=== PATIENT | male | born 1935 | race Caucasian/White ===

== ENCOUNTER 2017-05-29 11:00 | Inpatient (IN) ==
[2017-05-29 14:03] LABS: Basophils # (Auto) 0 K/mcL (0.0-0.3); Basophils % (Auto) 0.3 % (0.0-2.0); Eosinophils # (Auto) 0.1 K/mcL (0.0-0.7); Eosinophils % (Auto) 1.7 % (0.0-7.0); Lymphocytes # (Auto) 0.7 K/mcL (1.5-4.8); Lymphocytes % (Auto) 17.5 % (15.5-49.0); Mean Cell Volume 102.9 fL (80.0-100.0); Mean Corpuscular HGB Conc 34.2 g/dL (31.0-36.0); Mean Corpuscular Hemoglobin 35.2 pg (26.0-34.0); Monocytes # (Auto) 0.4 K/mcL (0.1-0.9); Monocytes % (Auto) 9.5 % (1.0-12.0); Platelet Count 208 K/mcL (140-440); RBC 4.06 M/mcL (4.50-5.90); Red Cell Distribution Width 13.6 % (11.5-14.5)
[2017-05-29 14:15] LABS: Blood Urea Nitrogen 22 mg/dl (8-23)
[2017-05-29 17:28] LABS: Appearance,Urine CLEAR; Bilirubin,Urine NEG (NEG); Color,Urine YELLOW; Glucose,Urine (UA) NEGATIVE (NEG); Leukocyte Esterase,Urine NEG /uL (NEG); Nitrate,Urine NEG (NEG); Protein,Urine NEG (NEG); Specific Gravity,Urine 1.021 (1.000-1.035); Urine Blood NEG mg/dL (<0.03); Urobilinogen,Urine NEG (NEG)
[2017-06-06] MEDS ORDERED: ceFAZolin 1 GM VIAL IV SCH (05:00)
[2017-06-06] MEDS ORDERED: LIDOCAINE HCL/PF 100 MG/5 ML SYRINGE IV ONE (10:30)
[2017-06-06] MEDS ORDERED: ATROPINE SULFATE 0.4 MG/ML VIAL IV ONE (10:30)
[2017-06-06] MEDS ORDERED: PHENYLEPHRINE 10 MG/ML VIAL IV ONE (10:30)
[2017-06-06] MEDS ORDERED: fentaNYL 100 MCG/2 ML VIAL IV ONE (10:30)
[2017-06-06] MEDS ORDERED: ONDANSETRON 4 MG/2 ML VIAL IV ONE (10:30)
[2017-06-06] MEDS ORDERED: PROPOFOL 200 MG/20 ML VIAL IV ONE (10:30)
[2017-06-06] MEDS ORDERED: GLYCOPYRROLATE 0.2 MG/ML VIAL IV ONE (10:30)
[2017-06-06] MEDS ORDERED: KETAMINE 100 MG/ML ML IV ONE (10:30)
[2017-06-06] MEDS ORDERED: MIDAZOLAM 2 MG/2 ML VIAL IV ONE (10:30)
[2017-06-06] MEDS ORDERED: ePHEDrine 50 MG/ML AMPUL IV ONE (10:30)
[2017-06-06] MEDS ORDERED: GENTAMICIN SULFATE 800 MG/20 ML VIAL IR ONE (11:06)
[2017-06-06] MEDS ORDERED: ePHEDrine 50 MG/ML AMPUL IV PRN (12:54)
[2017-06-06] MEDS ORDERED: METHOCARBAMOL 1,000 MG/10 ML VIAL IV PRN ×2 (12:54→21:13)
[2017-06-06] MEDS ORDERED: IPRATROPIUM/ALBUTEROL 3 ML AMPUL.NEB NEB PRN (12:54)
[2017-06-06] MEDS ORDERED: diphenhydrAMINE 50 MG/ML VIAL IV PRN (12:54)
[2017-06-06] MEDS ORDERED: MEPERIDINE 25 MG/ML SYRINGE IV PRN (12:54)
[2017-06-06] MEDS ORDERED: BENZOCAINE/MENTHOL 1 LOZENGE PO PRN ×2 (12:54→13:20)
[2017-06-06] MEDS ORDERED: MAGNESIUM HYDROXIDE 30 ML ORAL.SUSP PO PRN (13:20)
[2017-06-06] MEDS ORDERED: ONDANSETRON 4 MG/2 ML VIAL IV PRN ×2 (13:20)
[2017-06-06] MEDS ORDERED: POLYETHYLENE GLYCOL 3350 17 GM PACKET PO PRN (13:20)
[2017-06-06] MEDS ORDERED: BISACODYL 10 MG SUPP.RECT PR PRN (13:20)
[2017-06-06] MEDS ORDERED: TRANEXAMIC ACID 1,000 MG/10 ML VIAL IV ONE (13:20)
[2017-06-06] MEDS ORDERED: FLEETS ADULT ENEMA PR PRN (13:20)
[2017-06-06] MEDS ORDERED: HYDROCODONE/APAP 7.5/325MG TABLET PO PRN (13:25)
--- NOTE | 2017-06-06 13:29 | Brief Operative Note ---
Date of procedure: 06/06/17 Pre-op diagnosis: ankle arthritis,achilles contracture Post-op diagnosis: same Procedure: TAR; avchilles lengthening; prophylactic internal fixation med mall Grafts/Implants: Yes (Infinity TAR) Anesthesia: GETA Complications: none Surgeon: Jason Esposito Collision Worker: Jigar Jacob Tourniquet Time (Minutes): 115 Specimens Removed/Pathology: none sent Condition: stable Disposition: floor
[2017-06-06] MEDS ORDERED: LACTATED RINGERS 1,000 ML IV SCH (13:30)
[2017-06-06] MEDS ORDERED: BUPIVACAINE 0.5% 50 ML VIAL IJ ONE (13:38)
[2017-06-06] MEDS: fentaNYL 100 MCG/2 ML VIAL IV PRN ×6 (14:00→14:43)
--- NOTE | 2017-06-06 14:18 | Operative Note ---
DATE OF OPERATION: 06/06/2017 PREOPERATIVE DIAGNOSES: 1. 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 2. Contracture of the right Achilles tendon. POSTOPERATIVE DIAGNOSES: 1. 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 2. Contracture of the right Achilles tendon. OPERATION: 1. Tendo-Achilles lengthening. 2. Right total ankle replacement. SURGEON: Jason Esposito MD. HEARING AID REPAIR TECHNICIAN: Jigar Jacob PA-C. ANESTHESIA: General done by Dr. Naik. TOURNIQUET TIME: 1 hour 55 minutes. ESTIMATED BLOOD LOSS: 100 mL. SUMMARY OF PROCEDURE: General anesthesia was attained. The right leg was prepped and draped. A thigh-level tourniquet was put up. The first thing that was done was the Z-lengthening of the Achilles tendon. A posteromedial incision was made 4 to 6 inches in length. It was taken down to the medial aspect of the Achilles tendon. A Z-lengthening was outlined and then performed with a 10 mm blade, keeping the posterior aspect of the tendon intact. We released the Achilles tendon throughout the Z-lengthening. Tensioning was done after the ankle replacement. Attention was then turned anteriorly. Incision was made just lateral to the tibialis anterior. It was taken down to the extensor retinaculum which was split longitudinally. The tibialis anterior was identified and mobilized medially. The anterior aspect of the ankle joint was approached. An incision was made in the soft tissue just under the tibialis anterior. Medial and lateral flaps were developed and the bone was exposed. Subperiosteal dissection was done of the very distal aspect of the tibia and dorsal aspect of the talus. The tibial cutting guide was placed on the tibia. It was aligned under mini C-arm and then pinned. The tibial guide was then exchanged for the saw cutting guide. The corner holes were made. The dorsal, medial and lateral cuts were then made as well. The anterior half of the distal tibia was removed using a threaded pin. Attention was then turned to the talus. The cutting guide was placed on the talus. The talar cut was made. Both components were then sized and they sized to a 4. The prongs were then made in the distal tibia using the guide system. The talus was next addressed. The guide was used for the posterior cut and the cut was made. The anterior and posterior bevels were then accomplished in two steps using a reamer. The prongs were then placed using the guide system into the anterior aspect of the talus. The best combination of a full range of motion and stability was with a 6 mm trial. The gutters were debrided on the medial and lateral aspect. All the cut bone was removed. The joint was thoroughly irrigated. A 4 long implant was then placed into the tibia. A size 4 talus was placed and then finally a 6 mm polyethylene insert was implanted. The tensioning was then done in the lengthened Achilles tendon. This was done with three mattress sutures of #2 FiberWire. Of note, prior to implantation a prophylactics screw was placed into the medial malleolus. This was done using a cannulated technique and a small stab incision. This was followed by pinning and drilling. A 70 mm 5.5 partially-threaded screw was placed. The tourniquet was let down. The wound was copiously irrigated. The retinaculum was closed with interrupted 2-0 Monocryl. The subcutaneous tissue was closed with interrupted 2-0 Monocryl. The skin was closed with mattress sutures of 2-0 nylon. Posteriorly, the wound was irrigated. The epitenon was closed with interrupted 2-0 Monocryl. The subcutaneous tissue was closed with interrupted 2-0 Monocryl. The skin was closed with mattress sutures of 2-0 nylon. The areas of surgery were infiltrated with a total of 35 mL of Marcaine for postoperative analgesia. A sterile compressive dressing was applied followed by a Cedeno boot. The sponge and needle count was correct. The patient tolerated the procedures well and was taken to the recovery room in stable condition. YOANNA:heather Job ID: [id number] Doc ID: [id number] Jason Esposito MD
[2017-06-06] MEDS: HYDROmorphone 2 MG/ML SYRINGE IV PRN ×4 (14:20→14:35)
--- NOTE | 2017-06-06 14:40 | XRay Report ---
CLINICAL INFORMATION: Postoperative follow-up TECHNIQUE: AP, oblique, lateral right ankle COMPARISON: None. FINDINGS: Osseous detail scattered by overlying cast. There is a cancellous screw within the medial malleolus. Status post right tibiotalar arthroplasty. Prosthetic complements are in anatomic positions. IMPRESSION: Postsurgical right ankle as above Interpreted and Authenticated by: Hal Chung 06/06/17
[2017-06-06] MEDS: DEXTROSE 5%-1/2NS W/20MEQ KCL 1,000 ML IV SCH (15:15)
[2017-06-06] MEDS: 0.9 % SODIUM CHLORIDE 10 ML SYRINGE IV SCH (15:16)
--- NOTE | 2017-06-06 17:51 | Orthopedic Progress Note ---
Subjective Patient information: Note initiated : 06/06/17 at 5:48 pm Service Date, if different from initiated Date: [] Patient: Alen Pavon 81 y/o M admitted on 06/06/17 for Right Total Ankle Replacement. Chief Complaint: [] Principal diagnosis: DJD right ankle Interval history: TAR today Objective Vital signs: Vital Signs Temp Pulse Resp BP Pulse Ox 06/06/17 17:06 97.1 F 58 L 16 134/65 95 06/06/17 16:06 97.0 F 60 16 153/76 93 06/06/17 15:52 97.1 F 58 L 18 152/82 99 06/06/17 15:27 97.1 F 62 18 163/83 98 06/06/17 15:15 97.2 F 55 L 18 144/83 100 06/06/17 14:50 97.6 F 64 14 118/69 99 06/06/17 14:35 61 13 116/71 100 06/06/17 14:20 60 12 133/83 99 06/06/17 14:05 66 15 107/70 99 06/06/17 13:58 97.6 F 64 15 129/88 100 06/06/17 06:15 96.9 F L 61 16 155/80 97 Intake and Output 06/06/17 06/06/17 06/06/17 05:59 13:59 21:59 Intake Total 1999 Output Total 1125 / 1125 Balance 875 / 875 Intake: IV 1999 Output: Urine Catheter Amount 1000 / 1000 Estimated Blood Loss 125 / 125 Other: Weight 172 lb Patient Weight 06/07/17 05:59 Weight 172 lb Intake & Output: Intake & Output 06/06/17 06/06/17 06/06/17 05:59 13:59 21:59 Intake Total 1999 Output Total 1125 / 1125 Balance 875 / 875 Weight 172 lb Intake: IV 1999 Output: Urine Catheter Amount 1000 / 1000 Estimated Blood Loss 125 / 125 Dressing: Yes clean, Yes dry, Yes intact, Yes splint in place Neurological exam IM: Yes motor sensory deficit, Yes oriented X3 - Diagnostic Results Ankle x-ray: image reviewed (Well positioned TAR, no complications) - Labs CBC & BMP: 05/29/17 12:03 05/29/17 12:03 Labs: 05/29/17 12:03 Hgb 14.3 Hct 41.7 Assessment and Plan (1) History of total replacement of right ankle No complications ASA for dvt prophylaxis(hx bleeding with regular ASA OOB tochair; PT in am Status: Acute
[2017-06-06] MEDS: ceFAZolin 1 GM VIAL IV SCH (17:54)
[2017-06-06] MEDS: SENNOSIDES 1 TABLET PO SCH ×2 (18:43→21:38)
[2017-06-06] MEDS: DOCUSATE SODIUM 100 MG CAPSULE PO SCH ×2 (18:44→21:38)
[2017-06-06] MEDS ORDERED: METHOCARBAMOL 750 MG TABLET PO PRN (21:12)
[2017-06-07] MEDS: 0.9 % SODIUM CHLORIDE 10 ML SYRINGE IV SCH ×4 (00:05→21:10)
[2017-06-07] MEDS: HYDROcodone/APAP 10/325MG TABLET PO PRN ×4 (01:28→18:54)
[2017-06-07] MEDS: DEXTROSE 5%-1/2NS W/20MEQ KCL 1,000 ML IV SCH ×2 (01:32→11:07)
[2017-06-07] MEDS: ceFAZolin 1 GM VIAL IV SCH ×3 (02:35→17:44)
--- NOTE | 2017-06-07 06:54 | Orthopedic Progress Note ---
Subjective Patient information: Note initiated : 06/07/17 at 6:51 am Service Date, if different from initiated Date: [] Patient: Alen Pavon 81 y/o M admitted on 06/06/17 for Right Total Ankle Replacement. Chief Complaint: [] Principal diagnosis: DJD right ankle Interval history: Patient has some pain in the ankle but is otherwise doing okay. Rest well last night after pain medicine. Denies any CP, SOB, ROMAN, or any other acute symptoms. Objective Vital signs: Vital Signs Temp Pulse Resp BP Pulse Ox 06/07/17 04:00 97.8 F 61 16 125/68 97 06/06/17 23:53 98.0 F 69 18 96/56 95 06/06/17 21:52 95 06/06/17 21:50 88 L 06/06/17 21:40 93 06/06/17 19:51 97.7 F 59 L 16 129/83 93 06/06/17 17:12 96.9 F L 66 16 146/77 99 06/06/17 17:06 97.1 F 58 L 16 134/65 95 06/06/17 16:06 97.0 F 60 16 153/76 93 06/06/17 15:52 97.1 F 58 L 18 152/82 99 06/06/17 15:27 97.1 F 62 18 163/83 98 06/06/17 15:15 97.2 F 55 L 18 144/83 100 06/06/17 14:50 97.6 F 64 14 118/69 99 06/06/17 14:35 61 13 116/71 100 06/06/17 14:20 60 12 133/83 99 06/06/17 14:05 66 15 107/70 99 06/06/17 13:58 97.6 F 64 15 129/88 100 Intake and Output 06/06/17 06/07/17 06/07/17 21:59 05:59 13:59 Intake Total 2240 / 2240 1920 / 1920 Output Total 1125 / 1125 1000 / 1000 Balance 1115 / 1115 920 / 920 Intake: IV 1999 / 1999 1000 / 1000 Dextrose 5%-1/2Ns W/20Meq 1000 / 1000 KCl 1,000 ml @ 100 mls/ hr IV CONT GAYATRI Rx#: [id number] Oral 240 / 240 920 / 920 Output: Urine Catheter Amount 1000 / 1000 1000 / 1000 Estimated Blood Loss 125 / 125 Other: Meal Dinner Percent of Meal Consumed 75% Feeding Ability Assist with Tray Set Up Weight 187 lb Intake & Output: Intake & Output 06/06/17 06/07/17 06/07/17 21:59 05:59 13:59 Intake Total 2240 / 2240 1920 / 1920 Output Total 1125 / 1125 1000 / 1000 Balance 1115 / 1115 920 / 920 Weight 187 lb Intake: IV 1999 / 1999 1000 / 1000 Dextrose 5%-1/2Ns W/20Meq 1000 / 1000 KCl 1,000 ml @ 100 mls/ hr IV CONT GAYATRI Rx#: [id number] Oral 240 / 240 920 / 920 Output: Urine Catheter Amount 1000 / 1000 1000 / 1000 Estimated Blood Loss 125 / 125 Other: Meal Dinner Percent of Meal Consumed 75% Feeding Ability Assist with Tray Set Up Incision clean and dry: Yes Dressing: Yes clean, Yes dry, Yes intact, Yes splint in place Neurological exam IM: Yes neurovascular intact Extremities exam IM: No calf tenderness, Yes Foot pink and warm, Yes neurovascular intact - Labs CBC & BMP: 06/07/17 04:30 05/29/17 12:03 Labs: Orthopedic Labs 06/07/17 04:30 PT Pending INR Pending 06/07/17 05/29/17 04:30 12:03 Hgb 11.7 L 14.3 Hct 34.5 L 41.7 Assessment and Plan (1) History of total replacement of right ankle Plan to keep patient one more day for PT and pain control Kary singh once patient able to ambulate to bathroom Follow up in 7 days for cast change Status: Acute
[2017-06-07] MEDS: DOCUSATE SODIUM 100 MG CAPSULE PO SCH ×2 (09:00→21:10)
[2017-06-07] MEDS: ASPIRIN 81 MG TAB.CHEW PO SCH (09:00)
[2017-06-07] MEDS: VITAMIN D3 1,000 UNIT TABLET PO SCH (09:00)
[2017-06-07] MEDS: SENNOSIDES 1 TABLET PO SCH (21:10)
[2017-06-08] MEDS: HYDROcodone/APAP 10/325MG TABLET PO PRN ×3 (01:18→15:42)
[2017-06-08] MEDS: 0.9 % SODIUM CHLORIDE 10 ML SYRINGE IV SCH ×2 (05:37→13:20)
[2017-06-08] MEDS: DOCUSATE SODIUM 100 MG CAPSULE PO SCH (08:19)
[2017-06-08] MEDS: VITAMIN D3 1,000 UNIT TABLET PO SCH (08:19)
[2017-06-08] MEDS: ASPIRIN 81 MG TAB.CHEW PO SCH (08:19)
== END 2017-06-08 16:30 | disposition home or self-care (01) | DRG 470 ==
LOC: MEDSUR 06-06 06:15
PROVIDERS: ADMIT Orthopaedic Surgery Foot and Ankle Surgery; ATTEND Orthopaedic Surgery Foot and Ankle Surgery

== ENCOUNTER 2018-03-20 14:20 | Observation (INO) ==
[2018-03-20 15:19] LABS: Basophils # (Auto) 0 K/mcL (0.0-0.3); Basophils % (Auto) 0.6 % (0.0-2.0); Eosinophils # (Auto) 0.1 K/mcL (0.0-0.7); Eosinophils % (Auto) 2.5 % (0.0-7.0); Granulocytes % (Auto) 77.8 % (38.0-78.0); Lymphocytes # (Auto) 0.5 K/mcL (1.5-4.8); Lymphocytes % (Auto) 10.6 % (15.5-49.0); Mean Cell Volume 100.5 fL (80.0-100.0); Mean Corpuscular HGB Conc 34.7 g/dL (31.0-36.0); Mean Corpuscular Hemoglobin 34.9 pg (26.0-34.0); Monocytes # (Auto) 0.4 K/mcL (0.1-0.9); Monocytes % (Auto) 8.5 % (1.0-12.0); Platelet Count 236 K/mcL (140-440); RBC 4.03 M/mcL (4.50-5.90); Red Cell Distribution Width 13.5 % (11.5-14.5)
[2018-03-20 15:33] LABS: ALT/SGPT 14 U/l (0-40); Albumin 3.8 gm/dL (3.2-5.2); Alkaline Phosphatase 73 U/L (39-117); Blood Urea Nitrogen 19 mg/dl (8-23); C-Reactive Protein 0.5 mg/dl (0.0-0.8)
--- NOTE | 2018-03-20 15:33 | Emergency Department Note ---
Wound/Laceration HPI - General Chief Complaint: Wound/Laceration Stated Complaint: wound to right achilles Time Seen by Provider: 03/20/18 14:25 Source: patient Mode of arrival: ambulatory Limitations: no limitations - History of Present Illness HPI Narrative: Nonhealing wound to the right posterior calf. Seen in wound care, concern for erythema and induration around the wound as far as possible deep-seated cellulitis. Question workup for the ED including MR and labs. Patient with postsurgical poor wound healing, identified circulation issues with stent placement but persistent small vessel disease. Minimal pain no fevers no constitutional symptoms. Very active, has not been elevating the leg or dressing the wound quite as advised. - Related Data Home Medications Medication Instructions Recorded Confirmed Clopidogrel Bisulfate [Plavix] 1 tablet PO DAILY 08/14/17 03/20/18 Allergies Allergy/AdvReac Type Severity Reaction Status Date / Time Sulfa (Sulfonamide Allergy Mild Rash Verified 05/29/17 11:41 Antibiotics) barium sulfate AdvReac Mild Shakiness Verified 05/29/17 11:46 pentazocine [From Talwin] AdvReac Mild Hallucinati Verified 05/29/17 11:40 ng Anvsmjw-Qax-Mnz Reductase AdvReac Mild Joint Pain Verified 05/29/17 11:42 Inhibitor Review of Systems All systems ED: reviewed and negative except as stated. Past Medical History - Past Medical History Attestation: Yes: The following information was validated with the patient. Medical history: Reports: COPD, peripheral artery disease Surgical history ED: Reports: other (right ankle) Family history: Reports: non-contributory - Social History smoking status: Former smoker Physical Exam Limitations: no limitations General appearance: alert, in no apparent distress Head: atraumatic Eye: Present: normal appearance ENT: normal exam, mucous membranes moist Neck: Present: normal inspection. Absent: lymphadenopathy Chest: Present: normal inspection Respiratory: Absent: respiratory distress Cardiovascular: Present: regular rate, normal rhythm, systolic murmur. Absent: rubs, gallop, clicks Abdominal: Present: soft. Absent: tenderness Extremities: Present: other (ulcerative wound dorsal aspect of right calf with surrounding hyperemia and erythema, minimally tender and no warmth appreciated. Thready pulses of the foot, so Refill) Course Vital Signs Temperature 98.2 F 03/20/18 14:21 Pulse Rate 71 03/20/18 14:21 Respiratory Rate 16 03/20/18 14:21 Blood Pressure 125/66 03/20/18 14:21 Pulse Oximetry (%) 97 03/20/18 14:21 Temperature 98.2 F 03/20/18 14:21 Pulse Rate 64 03/20/18 17:17 Respiratory Rate 16 03/20/18 14:21 Blood Pressure 137/78 03/20/18 17:17 Pulse Oximetry (%) 94 03/20/18 17:17 Wound/Laceration - Lab Data Lab results reviewed: Yes I reviewed the patient's lab results. Result diagrams: 03/20/18 14:53 03/20/18 14:53 Lab Results 03/20/18 03/20/18 Range/Units 14:53 14:53 WBC 4.3 L (4.5-11.0) K/mcL RBC 4.03 L (4.50-5.90) M/mcL Hgb 14.1 (13.5-16.5) g/dL Hct 40.5 L (41.0-55.0) % MCV 100.5 H (80.0-100.0) fL MCH 34.9 H (26.0-34.0) pg MCHC 34.7 (31.0-36.0) g/dL RDW 13.5 (11.5-14.5) % Plt Count 236 (140-440) K/mcL MPV 7.9 (7.4-10.4) fL Gran % 77.8 (38.0-78.0) % Lymph % (Auto) 10.6 L (15.5-49.0) % Monona % (Auto) 8.5 (1.0-12.0) % Eos % (Auto) 2.5 (0.0-7.0) % Baso % (Auto) 0.6 (0.0-2.0) % Gran # 3.3 (1.8-8.0) K/mcL Lymph # (Auto) 0.5 L (1.5-4.8) K/mcL Monona # (Auto) 0.4 (0.1-0.9) K/mcL Eos # (Auto) 0.1 (0.0-0.7) K/mcL Baso # (Auto) 0 (0.0-0.3) K/mcL ESR 46 H (0-15) mm/hr Sodium 139 (133-145) mmol/L Potassium 4.5 (3.3-5.1) mmol/L Chloride 103 (96-108) mmol/L Carbon Dioxide 26 (22-30) mmol/L Anion Gap 10.0 (8-16) BUN 19 (8-23) mg/dl Creatinine 1.1 (0.7-1.2) mg/dl GFR Calculation 63 Glucose 91 (70-105) mg/dL Calcium 9.3 (8.6-10.4) mg/dl Total Bilirubin 0.7 (0.0-1.0) mg/dL AST 21 (0-37) U/l ALT 14 (0-40) U/l Alkaline Phosphatase 73 (39-117) U/L C-Reactive Protein 0.5 (0.0-0.8) mg/dl Total Protein 7.7 (5.9-8.4) gm/dL Albumin 3.8 (3.2-5.2) gm/dL Globulin 3.9 H (2.2-3.7) gm/dL Albumin/Globulin Ratio 1.0 (1.0-2.3) - Radiology Data Radiology results reviewed: Yes I reviewed the patient's radiology results. MR with deep tissue cellulitis Disposition Pt seen by GREENHOUSE WORKER/PA only: No Clinical Impression: Leg ulcer, Cellulitis Summary: admit to hospitalist, Desponde to consult Disposition: Xfer As Inpt ([facility]) Condition: Good Referrals: Kath Bain MD [Primary Care Provider] -
[2018-03-20 16:12] LABS: Erythrocyte Sedimentation Rate 46 mm/hr (0-15)
--- NOTE | 2018-03-20 18:47 | Magnetic Resonance Report ---
CLINICAL INFORMATION: Total ankle prosthesis placed less than one year prior 2016. Excisional debridement of postsurgical wound posterior periarticular region. COMPARISON: Plain films from 06/06/2017. TECHNIQUE: Axial T1 T1 post Magnevist T2 proton density coronal proton density STIR sagittal T2 proton density and T1 images were acquired FINDINGS: Total ankle prostheses has created marked magnetic susceptibility artifact which obscures the adjacent talus, the distal tibial plafond and fibula. Most of the hindfoot and the distal tibia remains visualized and there is no evidence of osteomyelitis. Visualized joint spaces and hindfoot are normal in width and alignment without arthritic change. No abscess identified There is patchy increased signal within the periarticular muscle and fascial planes in the ankle and hindfoot IMPRESSION: Cellulitis and scattered myositis in the periarticular muscle and fascial planes in the ankle and hindfoot. There is no evidence of osteomyelitis; however, marked susceptibility artifact from total ankle prostheses and medial malleolar screw obscures much of the local marrow signal. Interpreted and Authenticated by: Hal Leblanc 03/20/18
[2018-03-20] MEDS ORDERED: cefTRIAXone 1 GM VIAL IV ONE ×2 (19:09→21:00)
[2018-03-20] MEDS ORDERED: VANCOMYCIN 1,000 MG in 0.9 % SODIUM CHLORIDE 250 ML IV ONE (19:09)
[2018-03-20] MEDS ORDERED: ACETAMINOPHEN 1,000 MG/100 ML BOTTLE IV PRN (20:43)
[2018-03-20] MEDS ORDERED: ACETAMINOPHEN 325 MG TABLET PO PRN (20:43)
[2018-03-20] MEDS ORDERED: ONDANSETRON 4 MG/2 ML VIAL IV PRN (20:43)
[2018-03-20] MEDS ORDERED: traZODone HCL 50 MG TABLET PO PRN (20:43)
[2018-03-20] MEDS ORDERED: MAGNESIUM SULFATE 2 GM/50 ML BAG IV PRN (20:43)
[2018-03-20] MEDS ORDERED: POTASSIUM CHLORIDE 20 MEQ PACKET PO PRN (20:43)
[2018-03-20] MEDS ORDERED: VANCOMYCIN PER PHARMACY IV ONE (20:43)
[2018-03-20] MEDS ORDERED: cefTRIAXone 2 GM in DEXTROSE 5% IN WATER 50 ML IV SCH (20:45)
[2018-03-20] MEDS ORDERED: VANCOMYCIN 500 MG in 0.9 % SODIUM CHLORIDE 100 ML IV ONE (21:00)
[2018-03-20] MEDS: HEPARIN 5,000 UNIT/ML VIAL SQ SCH (21:32)
[2018-03-20] MEDS: DOCUSATE SODIUM 100 MG CAPSULE PO SCH (21:32)
[2018-03-20] MEDS: SENNOSIDES/DOCUSATE SODIUM 1 TAB TABLET PO SCH (21:38)
--- NOTE | 2018-03-20 22:22 | Internal Med History&Physical ---
Medical - H&P: [facility] Patient information: Note initiated : 03/20/18 at 10:17 pm Service Date, if different from initiated Date: [] Patient: Alen Pavon 82 y/o M admitted on 03/20/18 for wound to right achilles. Chief Complaint: [] Chief complaint: rt ankle infection History of present illness: Mr. Pavon is a 82 year old M was evaluated in the ER with right redness swelling and nonhealing wound right ankle previous surgical site after he was referred by wound care physician Dr. Francois. History patient's symptoms aggravated after he has been vigorously working outdoors riding [employer] lawn and recent visit to [place]. He subsequently developed pain and worsening redness and swelling on the prior right ankle surgical site. Initial workup with MRI and right lower extremity revealed myositis cellulitis without osteomyelitis. Patient was started on antibiotics and hospitalist service was consulted for admission as per wound care service recommendations. At the time of evaluation patient is alert oriented. Denies fever chills. He denies headache photophobia. Endorses to increasing redness swelling but denies any pain. He has had vascular insufficiency for which he had stent placement and currently on Plavix. Review of systems 10 point review systems was performed and is negative except as discussed above Medical - H&P: PMH Medical history: Peripheral vascular disease History of COPD Smoking status: Former smoker Alcohol use: occasionally Medical - H&P: Meds Home Medications Medication Instructions Recorded Confirmed Type Clopidogrel Bisulfate [Plavix] 1 tablet PO DAILY 08/14/17 03/20/18 History Vancomycin HCl in Dextrose 5 % 1.5 gm IV Q12 #24 plast..bag 03/22/18 Rx [Vancomycin 1.5 Gram/500 ml-D5w] cefTRIAXone [Rocephin] 2 gm IM Q24H #12 vial 03/22/18 Rx Allergies Allergy/AdvReac Type Severity Reaction Status Date / Time Sulfa (Sulfonamide Allergy Mild Rash Verified 05/29/17 11:41 Antibiotics) barium sulfate AdvReac Severe Shakiness Verified 03/20/18 20:19 pentazocine [From Min] AdvReac Mild Hallucinati Verified 05/29/17 11:40 ng Gfduxiz-Afy-Nrp Reductase AdvReac Mild Joint Pain Verified 05/29/17 11:42 Inhibitor Medical - H&P: Exam - Constitutional Vitals: Temp Pulse Resp BP Pulse Ox 97.5 F 58 L 16 166/82 95 03/20/18 20:11 03/20/18 21:19 03/20/18 21:19 03/20/18 20:11 03/20/18 21:19 General appearance: no acute distress Exam: Alert oriented Nonlabored breathing Pupils symmetric Oral cavity dry No ear or nose discharge Head normocephalic Neck no lymphadenopathy S1 and S2 regular ESM grade 1 diminished breath sounds bases abdomen soft Lower extremity right lateral and posterior leg/ankle redness/induration/ ulceration Skin no suspicious lesion Psych alert cooperative Neuro nonfocal Medical - H&P: Reslt - Labs CBC & Chem 7: 03/22/18 03:55 03/22/18 03:55 Labs: Short CBC 03/20/18 Range/Units 14:53 WBC 4.3 L (4.5-11.0) K/mcL Hgb 14.1 (13.5-16.5) g/dL Hct 40.5 L (41.0-55.0) % Plt Count 236 (140-440) K/mcL BMP 03/20/18 14:53 Sodium 139 Potassium 4.5 Chloride 103 Carbon Dioxide 26 BUN 19 Creatinine 1.1 Glucose 91 Calcium 9.3 Liver Function 03/20/18 Range/Units 14:53 Total Bilirubin 0.7 (0.0-1.0) mg/dL AST 21 (0-37) U/l ALT 14 (0-40) U/l Alkaline Phosphatase 73 (39-117) U/L Albumin 3.8 (3.2-5.2) gm/dL Medical - H&P: A/P (1) Cellulitis of right ankle Problem details: Responding to IV antibiotics and local wound care Current visit: Yes Status: Acute * Right ankle cellulitis-MRI no evidence of osteomyelitis. Wound care consulted. Continue antibiotics for gram-negative/MRSA coverage. * Peripheral vascular disease continue Plavix * Pain management on as needed opioids * Full code * prophylaxis heparin Plan * Broad antibiotic coverage/cultures * Wound care consult * Observation Admit
[2018-03-20] MEDS: 0.9 % SODIUM CHLORIDE 10 ML SYRINGE IV SCH (22:44)
[2018-03-21 05:40] LABS: Mean Cell Volume 102.1 fL (80.0-100.0); Mean Corpuscular Hemoglobin 34.7 pg (26.0-34.0); Platelet Count 203 K/mcL (140-440); RBC 3.64 M/mcL (4.50-5.90); Red Cell Distribution Width 13.5 % (11.5-14.5)
[2018-03-21 05:48] LABS: ALT/SGPT 11 U/l (0-40); Albumin 3.4 gm/dL (3.2-5.2); Albumin/Globulin Ratio 1.2 (1.0-2.3); Alkaline Phosphatase 61 U/L (39-117); Bilirubin,Direct < 0.2 mg/dL (0.0-0.3); Blood Urea Nitrogen 17 mg/dl (8-23); Gamma Glutamyl Transpeptidase 11 U/L (8-61); Uric Acid 6.4 mg/dL (2.5-8.0)
[2018-03-21] MEDS: 0.9 % SODIUM CHLORIDE 10 ML SYRINGE IV SCH ×5 (05:50→20:05)
[2018-03-21 07:44] LABS: Band Neutrophils % 1 % (0-10); Basophils % (Manual) 1 % (0-2); Eosinophils % (Manual) 3 % (0-7); Lymphocytes % 12 % (15-49); Macrocytosis 1+ (NONE SEEN); Monocytes % (Manual) 9 % (1-12); Platelet Estimate NORMAL (NORMAL); RBC Morphology ABNORM (NORMAL); Segmented Neutrophils % 73 % (38-78)
[2018-03-21] MEDS: CLOPIDOGREL 75 MG TABLET PO SCH (08:01)
[2018-03-21] MEDS: MULTIVIT,THER IRON,CA,FA & MIN 1 TABLET PO SCH (08:01)
[2018-03-21] MEDS: HEPARIN 5,000 UNIT/ML VIAL SQ SCH ×2 (08:02→21:05)
[2018-03-21] MEDS: DOCUSATE SODIUM 100 MG CAPSULE PO SCH ×2 (08:02→20:05)
[2018-03-21] MEDS ORDERED: VANCOMYCIN PER PHARMACY IV SCH (08:15)
[2018-03-21] MEDS: VANCOMYCIN 1,500 MG in 0.9 % SODIUM CHLORIDE 500 ML IV SCH ×2 (09:49→21:19)
--- NOTE | 2018-03-21 10:06 | General Surgery Consult Note ---
History of Present Illness Patient information: Note initiated : 03/21/18 at 10:01 am Service Date, if different from initiated Date: [] Patient: Alen Pavon 82 y/o M admitted on 03/20/18 for wound to right achilles. Chief Complaint: [] Consult date: 03/21/18 Requesting physician: Mike Noe (Wound care) History of present illness: Patient admitted via ER yesterday. 82/M Established wound care patient. S/P Right ankle replacement with delayed wound healing posterior ankle surgery site wound. PAD S/P Angiography and Stent placement. Patient was seen in clinic and sent to ER for CSSSI at the site of posterior ankle surgery wound and lower half of leg with acute inflammatory changes ( PAIN, SWELLING, REDNESS, WARMTH and throbbing pain. ) H/O OVER exertion walking ,driving, riding tractor and attending to [employer] for 2 -3 days prior. He was started on IV Vancomycin and Rocephin empirically and underwent a MRI scan.. This revealed soft tissue inflammatory changes, myositis but NO deep abscesses at site of wound. NO osteomyelitis. Medications and Allergies Home Medications Medication Instructions Recorded Confirmed Type Clopidogrel Bisulfate [Plavix] 1 tablet PO DAILY 08/14/17 03/20/18 History Allergies Allergy/AdvReac Type Severity Reaction Status Date / Time Sulfa (Sulfonamide Allergy Mild Rash Verified 05/29/17 11:41 Antibiotics) barium sulfate AdvReac Severe Shakiness Verified 03/20/18 20:19 pentazocine [From [facility]] AdvReac Mild Hallucinati Verified 05/29/17 11:40 ng Taysktv-Toe-Wry Reductase AdvReac Mild Joint Pain Verified 05/29/17 11:42 Inhibitor Exam Temp Pulse Resp BP Pulse Ox 98.3 F 55 L 18 173/83 97 03/21/18 07:04 03/21/18 03:58 03/21/18 07:04 03/21/18 07:04 03/21/18 07:36 - General physical appearance well developed, well nourished, no distress - Eyes PERRL, normal ocular movement - ENT normal pinna, normal nares, normal mucosa, no congestion - Head Head exam IM: Present: atraumatic, normal inspection, normocephalic - Neck no masses, no bruits, trachea midline, no venous distension - Cardiovascular Cardiovascular exam IM: Present: normal rate and rhythm, systolic murmur - Respiratory normal expansion, clear to auscultation dullness: bilateral (lung bases) - Abdomen Abdomen: Present: soft, non tender, bowel sounds - Integumentary Present: other (ACUTE MOIST DERMATITIS around the surgical wound site posterior ankle and lower leg. ) - Neurologic Present: normal coordination - Musculoskeletal Present: other (Ambulates with regular shoe. No evidence of calf tenderness. ) - Psychiatric Present: oriented to time, oriented to person, oriented to place, speech is normal, memory intact Results - Labs 03/21/18 04:17 03/21/18 04:17 Abnormal lab results 03/20/18 03/20/18 03/21/18 Range/Units 14:53 14:53 04:17 WBC 4.3 L 3.7 L (4.5-11.0) K/mcL RBC 4.03 L 3.64 L (4.50-5.90) M/mcL Hgb 12.6 L (13.5-16.5) g/dL Hct 40.5 L 37.2 L (41.0-55.0) % MCV 100.5 H 102.1 H (80.0-100.0) fL MCH 34.9 H 34.7 H (26.0-34.0) pg Lymph % (Auto) 10.6 L (15.5-49.0) % Lymph # (Auto) 0.5 L (1.5-4.8) K/mcL Lymphocytes % 12 L (15-49) % RBC Morphology Abnorm A (NORMAL) Macrocytosis 1+ A (NONE SEEN) ESR 46 H (0-15) mm/hr Globulin 3.9 H (2.2-3.7) gm/dL Diabetes panel 03/20/18 03/21/18 Range/Units 14:53 04:17 Sodium 139 139 (133-145) mmol/L Potassium 4.5 4.2 (3.3-5.1) mmol/L Chloride 103 106 (96-108) mmol/L Carbon Dioxide 26 25 (22-30) mmol/L BUN 19 17 (8-23) mg/dl Creatinine 1.1 0.9 (0.7-1.2) mg/dl Glucose 91 94 (70-105) mg/dL Calcium 9.3 8.7 (8.6-10.4) mg/dl AST 21 13 (0-37) U/l ALT 14 11 (0-40) U/l Alkaline Phosphatase 73 61 (39-117) U/L Total Protein 7.7 6.3 (5.9-8.4) gm/dL Albumin 3.8 3.4 (3.2-5.2) gm/dL Triglycerides 65 (<150) mg/dl Calcium panel 03/20/18 03/21/18 Range/Units 14:53 04:17 Calcium 9.3 8.7 (8.6-10.4) mg/dl Phosphorus 3.0 (2.7-4.5) mg/dL Albumin 3.8 3.4 (3.2-5.2) gm/dL Pituitary panel 03/20/18 03/21/18 Range/Units 14:53 04:17 Sodium 139 139 (133-145) mmol/L Potassium 4.5 4.2 (3.3-5.1) mmol/L Chloride 103 106 (96-108) mmol/L Carbon Dioxide 26 25 (22-30) mmol/L BUN 19 17 (8-23) mg/dl Creatinine 1.1 0.9 (0.7-1.2) mg/dl Glucose 91 94 (70-105) mg/dL Calcium 9.3 8.7 (8.6-10.4) mg/dl Adrenal panel 03/20/18 03/21/18 Range/Units 14:53 04:17 Sodium 139 139 (133-145) mmol/L Potassium 4.5 4.2 (3.3-5.1) mmol/L Chloride 103 106 (96-108) mmol/L Carbon Dioxide 26 25 (22-30) mmol/L BUN 19 17 (8-23) mg/dl Creatinine 1.1 0.9 (0.7-1.2) mg/dl Glucose 91 94 (70-105) mg/dL Calcium 9.3 8.7 (8.6-10.4) mg/dl Total Bilirubin 0.7 0.6 (0.0-1.0) mg/dL AST 21 13 (0-37) U/l ALT 14 11 (0-40) U/l Alkaline Phosphatase 73 61 (39-117) U/L Total Protein 7.7 6.3 (5.9-8.4) gm/dL Albumin 3.8 3.4 (3.2-5.2) gm/dL All other labs normal. Assessment and Plan (1) Dermatitis associated with moisture Status: Acute Priority: High Comment: Responding to IV antibiotics and local wound care. PLAN: See wound care orders. Await wound cultures sent from wound clinic. PICC line for IV antibiotcs for 10 days OK to discharge after PICC line and coordinating out patietn IV antibiotc and wound care at local clinic. AND follow up at wound care center in ONE week. 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 (3) Cellulitis of right ankle Status: Acute Priority: High Comment: Responding to IV antibiotics and local wound care
[2018-03-21] MEDS: MUPIROCIN OINT 2% 22GM TOPICAL SCH (10:42)
--- NOTE | 2018-03-21 12:05 | XRay Report ---
CLINICAL INFORMATION: PICC PLACEMENT COMPARISON: 08/14/2017 FINDINGS: Right PICC line tip is quite distal and overlies the tricuspid valve plane. The heart is moderately enlarged, but stable. Mediastinum and pulmonary vessels are normal. Lungs are clear. IMPRESSION: Moderate cardiomegaly - no acute disease. PICC line tip is distally positioned - near the tricuspid valve plane. The nurses were instructed to withdraw the line 6 cm Interpreted and Authenticated by: Hal Leblanc 03/21/18
[2018-03-21] MEDS ORDERED: cefTRIAXone 2 GM VIAL IV SCH (14:00)
[2018-03-21] MEDS: cefTRIAXone 2 GM VIAL IV SCH (14:11)
--- NOTE | 2018-03-21 15:32 | Internal Med Progress Note ---
Medical - PN: Subj Patient information: Note initiated : 03/21/18 at 3:31 pm Service Date, if different from initiated Date: [] Patient: Alen Pavon 82 y/o M admitted on 03/20/18 for Wound to Right Achilles/Cellulitis of Right Ankle. Chief Complaint: [] Interval history: Mr. Pavon is a 82 year old M was evaluated in the ER with right redness swelling and nonhealing wound after he was referred by wound care physician Dr. Fracnois. Initial workup with MRI and right lower extremity revealed myositis cellulitis without osteomyelitis. Patient was started on antibiotics and hospitalist service was consulted for admission as per wound care service recommendations. At the time of evaluation patient is alert oriented. Denies fever chills. He denies headache photophobia. Endorses to increasing redness swelling but denies any pain. He has had vascular insufficiency for which he had stent placement and currently on Plavix. 03/21- 03/22- - Constitutional Vitals: Vital Signs Temp Pulse Resp BP Pulse Ox 97.8 F 52 L 16 168/83 99 03/21/18 12:00 03/21/18 12:00 03/21/18 12:00 03/21/18 12:00 03/21/18 12:00 Period Temp Pulse Resp BP Sys/Juarez Pulse Ox Last 24 Hr 97.5 F-98.3 F 51-66 16-18 135-173/65-91 94-99 Intake and Output 03/21/18 03/21/18 03/21/18 05:59 13:59 21:59 Intake Total 200 / 200 1260 / 1260 Output Total 600 / 600 Balance -400 / -400 1260 / 1260 Intake & Output: Intake & Output 03/21/18 03/21/18 03/21/18 05:59 13:59 21:59 Intake Total 200 / 200 1260 / 1260 Output Total 600 / 600 Balance -400 / -400 1260 / 1260 Intake: IV 500 / 500 Vancomycin 1,500 mg In Sodium 500 / 500 Chloride 0.9% 500 ml @ 333.3 mls/hr IV Q12H [facility] Rx#: [id number] Oral 200 / 200 760 / 760 Output: Void Amount 600 / 600 Other: Meal Breakfast Percent of Meal Consumed 100% Feeding Ability Independent # Voids 2 # Bowel Movements 2 General appearance: cooperative, no acute distress Exam: Alert oriented nonlabored breathing Nondistended abdomen Right ankle cellulitis/erythema much improved Medical - PN: Obj Da - Labs CBC & Chem 7: 03/22/18 03:55 03/22/18 03:55 Labs: Abnormal Lab Results 03/21/18 03/20/18 03/20/18 04:17 14:53 14:53 WBC 3.7 L 4.3 L RBC 3.64 L 4.03 L Hgb 12.6 L Hct 37.2 L 40.5 L MCV 102.1 H 100.5 H MCH 34.7 H 34.9 H Lymph % (Auto) 10.6 L Lymph # (Auto) 0.5 L Lymphocytes % 12 L RBC Morphology Abnorm A Macrocytosis 1+ A ESR 46 H Globulin 3.9 H Meds: Medications Acetaminophen (Tylenol) 650 mg PO Q4-6HP PRN PRN Reason: PAIN/FEVER > 101 Ceftriaxone Sodium (Rocephin) 2 gm IV DAILY [facility] Last Admin: 03/21/18 14:11 Dose: 2 gm Clopidogrel Bisulfate (Plavix) 75 mg PO DAILY [facility] Last Admin: 03/21/18 08:01 Dose: 75 mg Docusate Sodium (Colace) 100 mg PO BID [facility] Last Admin: 03/21/18 08:02 Dose: 100 mg Heparin Sodium (Porcine) (Heparin) 5,000 unit SQ Q12 [facility] Last Admin: 03/21/18 08:02 Dose: 5,000 unit Heparin Sodium (Porcine) (Heparin Flush) 2 ml IV Q12 [facility] Last Admin: 03/21/18 12:39 Dose: 2 ml Magnesium Sulfate (Magnesium Sulfate) 2 gm in 50 mls @ 50 mls/hr IV UD PRN PRN Reason: MG = or < 1.7 Acetaminophen (Ofirmev) 1,000 mg in 100 mls @ 200 mls/hr IV Q6HP PRN PRN Reason: PAIN/FEVER > 101 Vancomycin HCl 1,500 mg/ (Sodium Chloride) 500 mls @ 333.3 mls/hr IV Q12H [facility] Last Infusion: 03/21/18 12:10 Dose: Infused Iron Carb/Multivit/Anchorer/Folic Acid (Multivitamin W/Minerals) 1 tab PO DAILY [facility] Last Admin: 03/21/18 08:01 Dose: 1 tab Mupirocin (Bactroban Oint 2%) 1 dose TOPICAL DAILY [facility] Last Admin: 03/21/18 10:42 Dose: 1 dose Ondansetron HCl (Zofran) 4 mg IV Q4-6HP PRN PRN Reason: Nausea And Vomiting Potassium Chloride (Klor-Con) 40 meq PO DAILYP PRN PRN Reason: K+ < 3.5 Senna/Docusate Sodium (Senna Plus Tablet) 1 tab PO HS [facility] Last Admin: 03/20/18 21:38 Dose: Not Given Sodium Chloride (Saline Flush) 10 ml IV Q8 [facility] Last Admin: 03/21/18 14:12 Dose: 10 ml Sodium Chloride (Saline Flush) 10 ml IV Q12 [facility] Last Admin: 03/21/18 10:42 Dose: 10 ml Trazodone HCl (Desyrel) 50 mg PO HSP PRN PRN Reason: Insomnia Vancomycin HCl (Vancomycin Per Pharmacy) 1 order IV UD [facility] Medical - PN: A/P - Time Spent With Patient Total time spent is greater than 50% in coordination of care (as documented) at patient's floor/unit and/or counseling patient: 15 - 24 minutes (1) Cellulitis of right ankle Problem details: Responding to IV antibiotics and local wound care Status: Acute Assessment and plan: * Right ankle cellulitis-MRI no evidence of osteomyelitis. Clinically improving on antibiotic coverage. Cultures negative so far. Wound care not responding to commands discharge with additional 12 days antibiotics and follow up as outpatient with wound care. PICC line placed for outpatient antibiotics * Peripheral vascular disease continue Plavix * Pain management on as needed opioids * Full code * prophylaxis heparin Plan * Continue broad antibiotic coverage * PICC line care Current Visit: Yes
[2018-03-21] MEDS: SENNOSIDES/DOCUSATE SODIUM 1 TAB TABLET PO SCH (20:05)
[2018-03-22 05:15] LABS: Mean Cell Volume 101.8 fL (80.0-100.0); Mean Corpuscular HGB Conc 34.4 g/dL (31.0-36.0); Platelet Count 210 K/mcL (140-440); RBC 3.77 M/mcL (4.50-5.90); Red Cell Distribution Width 13.4 % (11.5-14.5)
[2018-03-22 05:28] LABS: ALT/SGPT 11 U/l (0-40); Albumin 3.4 gm/dL (3.2-5.2); Albumin/Globulin Ratio 1.1 (1.0-2.3); Alkaline Phosphatase 65 U/L (39-117); Bilirubin,Direct < 0.2 mg/dL (0.0-0.3); Blood Urea Nitrogen 16 mg/dl (8-23); Gamma Glutamyl Transpeptidase 11 U/L (8-61); Uric Acid 6.8 mg/dL (2.5-8.0)
[2018-03-22 06:41] LABS: Band Neutrophils % 1 % (0-10); Eosinophils % (Manual) 3 % (0-7); Lymphocytes % 17 % (15-49); Macrocytosis 1+ (NONE SEEN); Monocytes % (Manual) 8 % (1-12); Platelet Estimate NORMAL (NORMAL); RBC Morphology ABNORM (NORMAL); Segmented Neutrophils % 71 % (38-78)
[2018-03-22] MEDS: DOCUSATE SODIUM 100 MG CAPSULE PO SCH (08:47)
[2018-03-22] MEDS: CLOPIDOGREL 75 MG TABLET PO SCH (08:47)
[2018-03-22] MEDS: MULTIVIT,THER IRON,CA,FA & MIN 1 TABLET PO SCH (08:47)
[2018-03-22] MEDS: cefTRIAXone 2 GM VIAL IV SCH (08:48)
[2018-03-22] MEDS: HEPARIN 5,000 UNIT/ML VIAL SQ SCH (08:49)
[2018-03-22] MEDS: 0.9 % SODIUM CHLORIDE 10 ML SYRINGE IV SCH (08:49)
[2018-03-22] MEDS ORDERED: MUPIROCIN CRM 2% 15 GM TUBE TOPICAL SCH (09:00)
[2018-03-22] MEDS: VANCOMYCIN 1,500 MG in 0.9 % SODIUM CHLORIDE 500 ML IV SCH (09:07)
--- NOTE | 2018-03-22 10:11 | Discharge Summary ---
Medical - DS: Prov Patient information: Note initiated : 03/22/18 at 10:09 am Service Date, if different from initiated Date: [] Patient: Alen Pavon 82 y/o M admitted on 03/20/18 for Wound to Right Achilles/Cellulitis of Right Ankle. Chief Complaint: [] Date of admission: 03/20/18 20:11 Discharge date: 03/22/18 Primary care physician: Kath Bain Consults: 03/20/18 19:11 Consult to Physician [CONS] Stat Comment: Consulting Provider: Mike Noe Reason For Exam: Physician to Consult 03/20/18 20:44 Consult to Physician [CONS] Routine Comment: Consulting Provider: Mamadou Francois Reason For Exam: Physician to Consult Medical - DS: Meds - Discharge Medications Prescriptions: cefTRIAXone [Rocephin] 2 gm IM Q24H #12 vial Vancomycin HCl in Dextrose 5 % [Vancomycin 1.5 Gram/500 ml-D5w] 1.5 gm IV Q12 # 24 plast..bag Active and Home Medications: Home Medications Clopidogrel Bisulfate [Plavix] 1 tablet PO DAILY 08/14/17 [History Confirmed Last Taken 03/20/18 05:00] Vancomycin HCl in Dextrose 5 % [Vancomycin 1.5 Gram/500 ml-D5w] 1.5 gm IV Q12 # 24 plast..bag 03/22/18 [Rx Last Taken Unknown] cefTRIAXone [Rocephin] 2 gm IM Q24H #12 vial 03/22/18 [Rx Last Taken Unknown] Medical - DS: Hosp Hospital course: Discharge diagnoses * Right ankle cellulitis-MRI no evidence of osteomyelitis. Clinically improving on antibiotic coverage. Cultures negative so far. Wound care follow- up with Dr. Francois. Continue additional 12 days antibiotics and follow up as outpatient with wound care. PICC line care instructions provided * Peripheral vascular disease continue Plavix Brief hospital course Mr. Pavon is a 82 year old M was evaluated in the ER with right redness swelling and nonhealing wound right ankle previous surgical site after he was referred by wound care physician Dr. Francois. History patient's symptoms aggravated after he has been vigorously working outdoors riding [employer] [facility] [employer] and recent visit to [place]. He subsequently developed pain and worsening redness and swelling on the prior right ankle surgical site. Initial workup with MRI and right lower extremity revealed myositis cellulitis without osteomyelitis. Patient was started on antibiotics and hospitalist service was consulted for admission as per wound care service recommendations. At the time of evaluation patient is alert oriented. Denies fever chills. He denies headache photophobia. Endorses to increasing redness swelling but denies any pain. He has had vascular insufficiency for which he had stent placement and currently on Plavix. 03/21-patient doing better. Improved redness and erythema. Cultures negative so far. Wound dressing performed of responded. Case discussed with Dr. Francois. No overnight events including fever chills or concerns per staff. PICC line placement for IV antibiotics. Possible discharge in 24 hours. 03/22- patient discharging with outpatient Rocephin/vancomycin additional 12 days. Continue PICC line care as advised. Follow up primary care physician and wound care is advised. Patient feels at baseline. Family at bedside. No concerns expressed by staff or family Discharge diagnosis: . - Time Spent with Patient Total time spent providing and/or coordinating discharge services: Greater than 30 minutes Medical - DS: Exam - Constitutional Vitals: Vital Signs Temp Pulse Resp BP Pulse Ox 03/22/18 06:56 97.9 F 18 152/79 95 03/22/18 04:00 97.6 F 53 L 18 145/80 94 03/21/18 23:31 98.0 F 56 L 18 146/76 96 03/21/18 19:23 99 F 60 16 134/59 95 03/21/18 16:00 96.8 F L 74 18 167/89 98 03/21/18 12:00 97.8 F 52 L 16 168/83 99 Intake and Output 03/21/18 03/22/18 03/22/18 21:59 05:59 13:59 Intake Total 300 / 300 750 / 750 Output Total 1275 / 1275 Balance 300 / 300 -525 / -525 Intake: IV 500 / 500 Vancomycin 1,500 mg In Sodium 500 / 500 Chloride 0.9% 500 ml @ 333.3 mls/hr IV Q12H [facility] Rx#: [id number] Oral 300 / 300 250 / 250 Output: Void Amount 1275 / 1275 Other: Meal Dinner Percent of Meal Consumed 100% # Voids 1 3 Weight 182 lb Medical - DS: Data Labs on day of discharge: Labs from last 24 hours 03/22/18 03/22/18 03/21/18 03:55 03:55 20:14 WBC 3.6 L RBC 3.77 L Hgb 13.2 L Hct 38.4 L MCV 101.8 H MCH 35.0 H MCHC 34.4 RDW 13.4 Plt Count 210 MPV 8.3 Total Counted 100 Seg Neutrophils % 71 Band Neutrophils % 1 Lymphocytes % 17 Monocytes % (Manual) 8 Eosinophils % (Manual) 3 Platelet Estimate Normal RBC Morphology Abnorm A Macrocytosis 1+ A Sodium 137 Potassium 4.1 Chloride 103 Carbon Dioxide 23 Anion Gap 11.0 BUN 16 Creatinine 0.9 GFR Calculation 80 Glucose 89 Uric Acid 6.8 Calcium 8.7 Phosphorus 3.1 Magnesium 2.1 Total Bilirubin 0.6 Direct Bilirubin < 0.2 GGT 11 AST 15 ALT 11 Alkaline Phosphatase 65 Lactate Dehydrogenase 177 Total Protein 6.6 Albumin 3.4 Globulin 3.2 Albumin/Globulin Ratio 1.1 Triglycerides 82 Vancomycin Trough 12.6 Preliminary micro results at discharge 03/20/18 14:59 Blood Culture - Preliminary Blood 03/20/18 15:08 Blood Culture - Preliminary Blood Medical - DS: A/P - Patient/Caregiver Discharge Instructions Activity: increase activity as tolerated Diet: Regular Diet Additional Instructions: PICC line care Continue Rocephin/vancomycin for additional 12 days at outpatient infusion Follow-up primary care physician 5 days Follow wound care as recommended by Dr. Francois Continue wound care as per wound physician recommendations Discussed the risk and side effect profile of antibiotics including C. difficile /diarrhea and anaphylaxis. Side effects can be minimized with close follow-up with primary care physician and monitoring for adverse effects. Prescriptions: cefTRIAXone [Rocephin] 2 gm IM Q24H #12 vial Vancomycin HCl in Dextrose 5 % [Vancomycin 1.5 Gram/500 ml-D5w] 1.5 gm IV Q12 # 24 plast..bag - Problem Maintenance (1) Cellulitis of right ankle Status: Acute Comment: Responding to IV antibiotics and local wound care - Follow up Plan Follow up with: Kath Bain MD [Primary Care Provider] - Disposition: Home, Self-Care Prognosis: Good Rehab Potential: Fair I certify that the patient requires SNF services: No Overall status at discharge: patient is progressing back to baseline
[2018-03-22] MEDS: MUPIROCIN OINT 2% 22GM TOPICAL SCH (11:13)
== END 2018-03-22 12:55 | disposition home or self-care (01) ==
LOC: ED 14:20 → INTOOBSV 20:11 → MEDSUR 20:11
PROVIDERS: ADMIT Internal Medicine; ATTEND Internal Medicine